=== PATIENT | female | born 1940 | race Caucasian/White ===

== ENCOUNTER 2020-02-07 09:31 | Outpatient (REF) | payer MEDICARE, BC, SELFPAY ==
[2020-02-07 19:03] LABS: TSH 0.53 uIU/mL (0.36-3.74)
== END 2020-02-07 09:51 ==
LOC: NCHCN 09:31
PROVIDERS: PCP Internal Medicine; Visit Provider Nurse Practitioner Family
DX: E03.9 Hypothyroidism, unspecified (principal)
CPT/HCPCS: 84443

== ENCOUNTER 2021-03-05 21:09 | Outpatient (REF) | payer MEDICARE, BC, SELFPAY ==
[2021-03-05 21:22] LABS: HCT 38.8 % (36.0-46.0); HGB 12.6 g/dL (11.2-15.7); MCH 31.3 pg (27.0-33.0); MCHC 32.5 % (32.0-36.0); MCV 96.5 fL (80-95); MPV 11.3 fL (8.0-11.0); Platelet Count 174 10^3/uL (130-400); RBC 4.02 10^6/uL (3.93-5.22); RDW-SD 42.7 fL; WBC 5.46 10^3/uL (4.4-10.8)
[2021-03-05 21:23] LABS: ESR 11 mm/hr (0-30)
[2021-03-05 21:25] LABS: Anion Gap 8.6 mmol/L (3-11); BUN 13 mg/dL (7-18); C-Reactive Protein 0.08 mg/dL (0.0-0.3); CO2 27.4 mmol/L (21.0-32.0); CREATININE 0.8 mg/dL (0.55-1.02); Calcium 9.4 mg/dL (8.5-10.1); Chloride 106 mmol/L (98-107); Glucose 88 mg/dL (74-106); Potassium 4.1 mmol/L (3.5-5.1); Sodium 142 mmol/L (136-145)
[2021-03-06 14:37] LABS: TSH 0.31 uIU/mL (0.36-3.74)
== END 2021-03-05 21:10 | disposition home or self-care (01) ==
LOC: NCHCN 21:09
PROVIDERS: PCP Internal Medicine; Visit Provider Internal Medicine
DX: E03.9 Hypothyroidism, unspecified (principal); M06.9 Rheumatoid arthritis, unspecified
CPT/HCPCS: 80048; 85027; 85652; 84443; 86140

== ENCOUNTER 2024-04-25 18:12 | Outpatient (REF) | payer MEDICARE, BC, SELFPAY ==
--- OUTSIDE RECORDS SUMMARY | 2024-04-25 18:15 | XMS_ITS ---
Author Organization Unknown Address [address] [place] [address] [phone] Phone Care Team Providers Care Agency Owner Name Role Phone HSERRY SELLERS Attending [facility] sheree MEEHAN Primary Unavailable Social History Type Status Start Date End Date Code Code Syst em Smoking History Never smoker (Never Smoked) 797901137 SNOMED CT Sex Female Hospital Discharge Instructions Should you have any questions prior to discharge, please contact a member of your healthcare team. If you have left the hospital and have any questions, please contact your primary care physician. Reason For Referral No Data Found Allergies and Adverse Reactions Allergy Substance Reaction Severity Start Date Concern Status Co de Code System SULFA (sulfonamide) Active 57337394 [facility] MED-CT Plan of Treatment Pre-Op Covid-19 Testing 06/04/2021 Encounters Encounter Diagnosis Start Date Code Code Sys tem Procedure and treatment not carried out because of patient's decision for other reasons 06/06/2021 SNO MED-CT Personal Care Team Section Performer Name Performer Role Active Date Inactive Da te
--- OUTSIDE RECORDS SUMMARY | 2024-04-25 18:15 | XMS_ITS | Continuity of Care Document ---
Author Organization [facility] Address [address] [place] [address] Care Team Providers Care Student Affairs Dean Name Role Phone Robert Ayala Primary Care Physician [facility] Date(s): 05/04/23 - 05/04/[address] [address] Discharge Disposition: Home or Self Care Attending Physician: Robert Hernández MD Admitting Physician: Robert Hernández MD Referring Physician: Robert Hernández MD Allergies, Adverse Reactions, Alerts Substance Reaction Severity Status sulfa drugs Unknown Active Augmentin XR pain joint Severe Active SARS-CoV-2 vaccines Renal failure Severe Active Medications levothyroxine 75 mcg (0.075 mg) oral tablet Start Date: 02/24/22 Status: Ordered Problem List Condition Confirmation Course Effective Dates Status Health St atus Informant Arthralgia of the ankle and/or foot Confirmed Active Cyst of left ovary Confirmed Active Posterior vaginal wall prolapse Confirmed Active Rheumatoid arthritis Confirmed Active Procedures Procedure Date Related Diagnosis Body Site Status Carpal tunnel syndrome of ri ght wrist 2020 Completed Carpal tunnel syndrome of left wrist 2014 Completed Procedure on back 2 07/16/11 Compl eted Ovarian cyst 2010 Completed Bladder 4 2005 Completed Tubal ligation 09/19/77 Completed Orthropedic Procedure 5 09/19/71 C ompleted 1with elbow 2Build up of bone in fifth vertebrae was removed 3removed cyst and ovary right 4tube tightner, 2008 mesh 5left thumb Results Laboratory List Name Date TSH w/ Rflx to Free T4 05/04/23 Basic Metabolic Panel 05/04/23 Most recent to oldest [Reference Range]: 1 BUN [7-18 mg/dL] 20 mg/dL *HI* (05/04/23 2:59 PM) Glucose Level [74-106 mg/dL] 81 mg/dL (05/04/23 2:59 PM) Potassium Level [3.5-5.1 mmol/L] 4.2 mmo l/L (05/04/23 2:59 PM) Sodium Level [136-145 mmol/L] 140 mmol/L (05/04/23 2:59 PM) Calcium Level [8.5-10.1 mg/dL] 9.2 mg/dL (05/04/23 2:59 PM) CO2 [21-32 mmol/L] 26 mmol/L (05/04/23 2:59 PM) TSH [0.358-3.740 mcIntlUnit/mL] 3.348 mc IntlUnit/mL (05/04/23 3:10 PM) eGFR Non-AA [>=60] 67 (05/04/23 2:59 PM) eGFR AA [>=60] 67 (05/04/23 2:59 PM) Chloride Level [98-107 mmol/L] 103 mmol/ L (05/04/23 2:59 PM) Creatinine Level [0.55-1.02 mg/dL] 0.87 mg/dL (05/04/23 2:59 PM) Social History Social History Type Response Tobacco Never tobacco user T obacco Use:. Sex Female Patient Care team information Care Team Personnel Name: Karol Robert MORENO MD Position: No Access Member Role: Informed Provider Address: Address: [address] [address]- [place] Name: [facility] Position: Physician Member Role: Primary Care Physician Address: Address: [address] [place] [phone]
--- OUTSIDE RECORDS SUMMARY | 2024-04-25 18:15 | XMS_ITS ---
Author Organization Unknown Address [address] [place] [phone] Phone Care Team Providers Care Motor Scooter Mechanic Name Role Phone SHERRY SELLERS Attending Chente Bruner Primary Unavailable Results C-ARM FLUORO NO CHARGE - Com pleted: 06/06/2021 16:38 LOINC: C-ARM FLUOROSCOPY: Fluoroscopy was provided for Dr. Prakash for guidance with performing a lumbar spine injection. Please see procedure note for details. Fluoro time = 12.3 seconds Ka,r = 4.25 mGy Dictated by: CEO JOHANNA RICHARDS M.D. RADIOLOGIST Transcribed by: SUJIT 06/06/21/16:42 [id number] Electronically Reviewed and Signed By: JOHANNA RICHARDS M.D. RADIOLOGIST 06/07/21 07:09 Copy for: SHERRY SELLERS via link DISCHARGED Social History Type Status Start Date End Date Code Code Syst em Smoking History Never smoker (Never Smoked) 554122561 SNOMED CT Sex Female Hospital Discharge Instructions Should you have any questions prior to discharge, please contact a member of your healthcare team. If you have left the hospital and have any questions, please contact your primary care physician. Reason For Referral No Data Found Procedures Procedure Name Date Status Code Code Syste m Injection Anesthetic Agent/S teroid Transforaminal Epidural Lumbar/Sacral Single Level 06/06/2021 completed 37656 CPT Allergies and Adverse Reactions Allergy Substance Reaction Severity Start Date Concern Status Co de Code System SULFA (sulfonamide) Active 14812674 [facility] MED-CT Plan of Treatment Pre-Op Covid-19 Testing 06/04/2021 Encounters Encounter Diagnosis Start Date Code Code Sys tem Other spondylosis with myelopathy, lumbar region 09/17 /2021 SNOMED-CT Personal Care Team Section Performer Name Performer Role Active Date Inactive Da te
--- OUTSIDE RECORDS SUMMARY | 2024-04-25 18:15 | XMS_ITS | Continuity of Care Document ---
Author Organization [facility] Address [address] [place] [address] Care Team Providers Care Cereal Chemist Name Role Phone Robert Ayala Primary Care Physician [facility] [id number] Date(s): 04/05/24 - 04/05/[address] [address] Discharge Disposition: Home or Self Care Attending Physician: Linnette Ang NP Admitting Physician: Lninette Ang SECOND SHIFT SUPERVISOR Referring Physician: Linnette Ang SECOND SHIFT SUPERVISOR Allergies, Adverse Reactions, Alerts Substance Reaction Severity [...] right 4tube tightner, 2008 mesh 5left thumb Social History Social History Type Response Tobacco Never tobacco user T obacco Use:. Sex Female Patient Care team information Care Team Personnel Name: Robert Hernández MD Position: No Access Member Role: Informed Provider Address: Address: [facility] [address] [facility], [place] [address] Name: Robert Ayala MD Position: Physician Member Role: Primary Care Physician Address: Address: [address] [place], [place] [address]
--- OUTSIDE RECORDS SUMMARY | 2024-04-25 18:16 | XMS_ITS | Encounter Summary ---
[place] [address] Care Team Providers Care Resin Shaver Name Role Phone Robert Roberson MD Primary Care Provider + [phone] Reason for Visit * Reason Comments Annual Exam Encounter Details Date Type Department Care Team (Late st Contact Info) Description 03/25/2023 8:30 AM EDT Office Visit Dermatology at [place] [address] [facility] [place] [address] Wisam Fortune MD [address] [facility] [place] [address] Actinic keratoses; History of SCC (squamous cell carcinoma) of skin; History of basal cell carcinoma Social History Tobacco Use Types Packs/Day Years Used Date Smoking Tobacco: Never Smokeless Tobacco: Never Sex and Gender Information Value Date Recorded Sex Assigned at Not on file Gender Identity Not on file Sexual Orientation Not on file documented as of this encounter Progress Notes * Wisam Fortune MD - 03/25/2023 8:30 AM EDT Problem: 1. One-year skin checkup 2. History of SCCA left upper chest 2005 3. History of rosacea initially diagnosed 2010 currently quiescent 4. 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 She is here for her yearly skin checkup. She has been doing well.She enjoys her time in [place] where she spends part of the summer and then denis in the [facility]. Physical examination reveals a pleasant 82-year-old woman who has has actinic's across the foreheadand also dorsal hands total of 5 sites are noted. Fortunately careful examination of the head and the neck the chest the back the hands arms forearms thighs and calves is benign. Assessment plan: Actinic keratosis facial and dorsal hands 1. LN 2 x 2 applied to each of 5 sites 2. Continue sun avoidance precautions 3. Return clinic in a year for a repeat check. History of multiple nonmelanoma cutaneous malignancies 1. No evidence of recurrence of prior treatment sites 2. Return to clinic in 1 year. CC: Robert Roberson MD documented in this encounter Plan of Treatment Upcoming Encounters Date Type Department Care Team (Late st Contact Info) Description 04/17/2025 10:00 AM EDT Office Visit Dermatology at [place] [address] [place] [address] Wisam Fortune MD [address] [facility], [facility] [place] [address] documented as of this encounter Visit Diagnoses Diagnosis Actinic keratoses Actinic keratosis History of SCC (squamous cell carcinoma) of skin Personal history of other malignant neoplasm of skin History of basal cell carcinoma Personal history of other malignant neoplasm of skin documented in this encounter Care Teams Resin Shaver Relationship Specialty Start Date End Date Robert Roberson MD [address] [place] [id number] PCP - General General Internal Medicine 08/14/16 documented as of this encounter
--- OUTSIDE RECORDS SUMMARY | 2024-04-25 18:16 | XMS_ITS | Encounter Summary ---
[place] [address] Care Team Providers Care Medart Operator Name Role Phone Robert Roberson MD Primary Care Provider [phone] Encounter Details Date Type Department Care Team (Latest Contact Info) Description 04/11/2024 Travel Social History Tobacco Use Types Packs/Day Years Used Date Smoking Tobacco: Never Smokeless Tobacco: Never Sex and Gender Information Value Date Recorded Sex Assigned at Not on file Gender Identity Not on file Sexual Orientation Not on file documented as of this encounter Plan of Treatment Upcoming Encounters Date Type Department Care Team (Late st Contact Info) Description 04/17/2025 10:00 AM EDT Office Visit Dermatology at [place] [address] [place] [id number] Wisam Fortune MD [address] [facility] [place] [address] documented as of this encounter Visit Diagnoses Not on filedocumented in this encounter Care Teams Medart Operator Relationship Specialty Start Date End Date Robert Roberson MD [address] [place] [id number] PCP - General General Internal Medicine 08/14/16 documented as of this encounter
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
--- OUTSIDE RECORDS SUMMARY | 2024-04-25 18:16 | XMS_ITS | Encounter Summary ---
Author Organization [facility] Address [address] [place] [address] Care Team Providers Care Pile Header Name Role Phone Unavailable Primary Care Provider Unavailabl e Encounter Details Date Type Department Care Team (Latest Contact Info) Description 08/18/2007 15:39 EST Hospital Encounter [facility] - [facility] [address] [place] [address] Larry Nuñez MD [address] [place] [address] [address] [place] [address] Discharge Disposition: Auto Discharge Social History Tobacco Use Types Packs/Day Years Used Date Smoking Tobacco: Never Assessed Sex and Gender Information Value Date Recorded Sex Assigned at Not on file Gender Identity Not on file Sexual Orientation Not on file documented as of this encounter Discharge Disposition Disposition Code Departure Means Destination Auto Discharge documented in this encounter Plan of Treatment Not on file documented as of this encounter Visit Diagnoses Not on filedocumented in this encounter
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
--- OUTSIDE RECORDS SUMMARY | 2024-04-25 18:16 | XMS_ITS | Encounter Summary ---
Author Organization [facility] Address [address] [place] [address] Care Team Providers Care Internetworking Technician Name Role Phone Unavailable Primary Care Provider Unavailabl e Encounter Details Date Type Department Care Team (Late st Contact Info) Description 10/03/1999 Results Only [facility] - Maple conversion [address] [place] [address] Unknown, Provider, Social History Tobacco Use Types Packs/Day Years Used Date Smoking Tobacco: Never Assessed Sex and Gender Information Value Date Recorded Sex Assigned at Not on file Gender Identity Not on file Sexual Orientation Not on file documented as of this encounter Plan of Treatment Not on file documented as of this encounter Procedures Procedure Name Priority Date/Time Associated Diagnosis Comments TSH Routine 10/03/1999 19:25 EST T4 FREE Routine 10/03/1999 19:25 EST documented in this encounter Results * (ABNORMAL) TSH (10/03/1999 19:25 EST) TSH 8.64(H) 0.35 - 5.50 uIU/ml [facility] 10/03/1999 19:2 5 EST 10/06/1999 19:25 EST Provider Unknown CHEMISTRY & BLOOD GA S ORDERABLES [facility] [address] [place] [address] * T4 FREE (10/03/1999 19:25 EST) Free T4 1.2 0.8 - 1.8 ng/dl [facility] 10/03/1999 19:2 5 EST 10/06/1999 19:25 EST Provider Unknown CHEMISTRY & BLOOD GA S ORDERABLES Performing Organization Address City/State/[facility] Co de Phone Number [facility] [address] [place] [address] documented in this encounter Visit Diagnoses Not on filedocumented in this encounter
--- OUTSIDE RECORDS SUMMARY | 2024-04-25 18:16 | XMS_ITS | Encounter Summary ---
[place] [address] Care Team Providers Care Relief Charge Nurse Name Role Phone Robert Roberson MD Primary Care Provider + [phone] Reason for Visit * Reason Comments Annual Exam Encounter Details Date Type Department Care Team (Late st Contact Info) Description 04/11/2024 11:30 AM EDT Office Visit Dermatology at [place] [address] [facility] [place] [address] Wisam Fortune MD [address] [facility], [place] [address] History of SCC (squamous cell carcinoma) of skin; History of basal cell carcinoma; Seborrheic keratoses Social History Tobacco Use Types Packs/Day Years Used Date Smoking Tobacco: Never Smokeless Tobacco: Never Sex and Gender Information Value Date Recorded Sex Assigned at Not on file Gender Identity Not on file Sexual Orientation Not on file documented as of this encounter Progress Notes * Wisam Fortune MD - 04/11/2024 11:30 AM EDT Problem: 1. One-year skin checkup 2. History of SCCA left upper chest 2005 3. History of rosacea initially diagnosed 2010 currently quiescent 4. 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 She has been doing well. She enjoys her time in [place] where she spends part of the summer and then denis in the [facility]. Fortunately she experienced dog bites when she was in [place] this last year on her left leg which caused extensive wound and was very slow to heal. She was also bitten once on her buttocks. She shows me a photograph of the wound 45 minutes after it was inflicted. Physical examination reveals a pleasant 83-year-old woman who has a benign examination today of thehead and the neck the chest the back the hands arms forearms thighs and calves is benign. She does have an irritated seborrheic keratoses 1 on her right lateral cheek and 1 on the anterior upper flexural Neck. She has a number of seborrheic keratoses on the inferior breasts and on her upper abdomen. Assessment plan: Seborrheic keratoses face neck and chest 1. Patient reassured about benign seborrheic keratoses 2. Could consider LN2 for right lateral cheek and flexural neck sites 3. No evidence of any cutaneous malignancies seen. 4. Return to clinic in a year for repeat check. History of multiple nonmelanoma cutaneous malignancies 1. No evidence of recurrence of prior treatment sites 2. Return to clinic in 1 year. CC: Robert Roberson MD documented in this encounter Plan of Treatment Upcoming Encounters Date Type Department Care Team (Late st Contact Info) Description 04/17/2025 10:00 AM EDT Office Visit Dermatology at [place] [address] [place] [address] Wisam Fortune MD [address] [facility], [place] [address] documented as of this encounter Visit Diagnoses Diagnosis History of SCC (squamous cell carcinoma) of skin Personal history of other malignant neoplasm of skin History of basal cell carcinoma Personal history of other malignant neoplasm of skin Seborrheic keratoses documented in this encounter Care Teams Relief Charge Nurse Relationship Specialty Start Date End Date Robert Roberson MD [address] [place] [address] PCP - General General Internal Medicine 08/14/16 documented as of this encounter
--- OUTSIDE RECORDS SUMMARY | 2024-04-25 18:16 | XMS_ITS | Encounter Summary ---
Author Organization [facility] Address [address] [place] [address] Care Team Providers Care Trade Specialist Name Role Phone Zoran Roberson MD Primary Care Provider Encounter Details Date Type Department Care Team (Late st Contact Info) Description 12/08/2006 Results Only [facility] - Maple conversion [address] [place] [address] Larry Brush MD [address] [facility] [address] [place] [address] Social History Tobacco Use Types Packs/Day Years Used Date Smoking Tobacco: Never Assessed Sex and Gender Information Value Date Recorded Sex Assigned at Not on file Gender Identity Not on file Sexual Orientation Not on file documented as of this encounter Plan of Treatment Not on file documented as of this encounter Procedures Procedure Name Priority Date/Time Associated Diagnosis Comments SURGICAL PATHOLOGY Routine 12/08/2006 0:00 EDT documented in this encounter Results * SURGICAL PATHOLOGY (12/08/2006 0:00 EDT) Pathology Report: SURGICAL PATHOLOGY REPORT Reports generated via electronic interface contain original data; however they are lacking the format of the original report. Caution should be taken when reading/interpreti ng unformatted reports. Name: ? TAYA SERRANO ? Accession #: ? [id number] ? : ? 1940 (Age: 66) ??F ? Collect Date: ? 12/08/2006 ? Location: ? [facility] ? Receive Date: ? 12/08/2006 ? Provider: LARRY BRUSH MD Copy to: ZORAN ROBERSON MD ? Final Pathologic Diagnosis: ? Skin of nose, left tip, shave biopsy: - Granulomatous perifolliculitis. ??See comment. Comment: ? The histologic features are consistent with rosacea. ??There is no evidence of basal cell carcinoma. ??(Dr. Jeff)/[facility] Microscopic Description: ? Sections consist of a shave biopsy of a low papule. ??There is mild orthohyperkeratosi s and focal parakeratosis. ??Centrally, there is a distorted follicular infundibulum. ??The surrounding dermis has a dense mixed inflammatory infiltrate that includes clusters of macrophages and rare multinucleate giant cells. ??The histiocytes are accompanied by lymphocytes and plasma cells as well as a small number of neutrophils. ??There is mild vascular ectasia and abundant solar elastosis. ??(Dr. Jeff)/[facility] Document reviewed and electronically signed by: Codi Jeff MD Report ??Date: 12/10/2006 15:29 By the signature above, the attending physician certifies that he/she has personally conducted a gross and/or microscopic examination of the described specimens and rendered or confirmed the above diagnosis. Specimen(s) Received: ? L tip of nose Clinical History: ? BCC vs. rosacea; clinical diagnosis code: 709.9 Gross Description: ? Received in formalin labelled Cardoza and nasal tip is a choi irregular 0.4 x 0.3 cm skin shave with a central choi-yellow 0.2 x 0.2 x 0.1 cm slightly raised papule. The specimen is inked, bisected and is entirely submitted in one cassette. (Jeronimo Pittman ??MM)/[facility] End of Report [facility] 12/08/2006 12/08/2006 1:0 1 EDT Larry Brush MD PATHOLOGY ORDER ISAAC [facility] [address] [place] [address] documented in this encounter Visit Diagnoses Not on filedocumented in this encounter Care Teams Trade Specialist Relationship Specialty Start Date End Date Zoran Roberson MD [address] [place] [address] PCP - General 02/27/10 documented as of this encounter
--- OUTSIDE RECORDS SUMMARY | 2024-04-25 18:16 | XMS_ITS | Encounter Summary ---
Author Organization [facility] Address [address] [place] [address] Care Team Providers Care Qc Tech Name Role Phone Zoran Roberson MD Primary Care Provider Encounter Details Date Type Department Care Team ([facility] st Contact Info) Description 05/13/[address] [facility] - Maple conversion [address] [place] [address] Justina Salmon, MANUFACTURER'S REPRESENTATIVE [address] [place], [place] [address] Social History Tobacco Use Types Packs/Day Years Used Date Smoking Tobacco: Never Assessed Sex and Gender Information Value Date Recorded Sex Assigned at Not on file Gender Identity Not on file Sexual Orientation Not on file documented as of this encounter Plan of Treatment Not on file documented as of this encounter Procedures Procedure Name Priority Date/Time Associated Diagnosis Comments SURGICAL PATHOLOGY Routine 05/13/2006 0:00 EDT documented in this encounter Results * SURGICAL PATHOLOGY (05/13/2006 0:00 EDT) Pathology Report: SURGICAL PATHOLOGY REPORT Reports generated via electronic interface contain original data; however they are lacking the format of the original report. Caution should be taken when reading/interpreti ng unformatted reports. Name: ? TAYA SERRANO ? Accession #: ? [id number] ? : ? 1940 (Age: 65) ??F ? Collect Date: ? 05/13/2006 ? Location: ? [facility] ? Receive Date: ? 05/13/2006 ? Provider: JUSTINA SALMON DIGITAL PROGRAM MANAGER Copy to: ZORAN ROBERSON MD ? Final Pathologic Diagnosis: ? Skin of shoulder, right superior, shave biopsy: - Solar lentigo. Microscopic Description: ? The stratum corneum consists of a normal thin layer of basketweave orthokeratin. ??The epidermis is hyperplastic with elongate, thin, anastomosing rete ridges. ??Some of the rete are club shaped. ??The keratinocytes have abundant melanin pigment. ??The melanocytes are generally normal in number and distribution. ??There is prominent solar elastosis in the dermis. ??(Dr. Rubin)/[facility] Document reviewed and electronically signed by: Alysha Rubin MD Report ??Date: 05/18/2006 08:07 By the signature above, the attending physician certifies that he/she has personally conducted a gross and/or microscopic examination of the described specimens and rendered or confirmed the above diagnosis. Specimen(s) Received: ? R superior shoulder Clinical History: ? Nevus, atypical/lentigo; clinical diagnosis code: ??238.2 Gross Description: ? Received in formalin labelled Sheperd and R shoulder is a 0.6 x 0.5 x 0.1 cm shave biopsy of choi-brown skin with a centrally located, irregularly-border ed, brown macule. ??The specimen is bisected and entirely submitted in one cassette. ??(Renzo Mancia)/[facility] End of Report [facility] 05/13/2006 05/13/2006 14: 32 EDT Justina Salmon MANUFACTURER'S REPRESENTATIVE PATHOLOGY ORDERABLES [facility] [address] [place] [address] documented in this encounter Visit Diagnoses Not on filedocumented in this encounter Care Teams Qc Tech Relationship Specialty Start Date End Date Zoran Roberson MD [address] [place] [address] PCP - General 02/27/10 documented as of this encounter
--- OUTSIDE RECORDS SUMMARY | 2024-04-25 18:16 | XMS_ITS | Encounter Summary ---
Author Organization [facility] Address [address] [place] [address] Care Team Providers Care Accounting System Expert Name Role Phone Unavailable Primary Care Provider Unavailabl e Encounter Details Date Type Department Care Team (Latest Contact Info) Description 05/12/2001 11:13 EDT - 05/12/2001 11:59 EDT Hospital Encounter [facility] [address] [place] [address] Christianne Green MD [address] [facility] [address] [place] [id number] Discharge Disposition: Auto Discharge Social History Tobacco [...] Procedure Name Priority Date/Time Associated Diagnosis Comments WRIST 2 VIEWS BILATERAL Routine 05/12/2001 15:11 EDT FOOT 3 OR MORE VIEWS BILATERAL Routine 05/12/2001 15:11 EDT documented in this encounter Results * FOOT 3 OR MORE VIEWS BILATERAL (05/12/2001 15:11 EDT) Anatomical Region Laterality Modality Other 05/12/2001 15:1 1 EDT Impressions 08/09/2009 0:28 EST IMPRESSION: Degenerative change in the interphalangeal joints, most pronounced in the DIP joints, though this is atypical, this may reflect rheumatoid arthritis. WRISTS: Two views of each wrist were obtained. There is some irregularity and sclerosis at the first carpometacarpal joints bilaterally. No significant erosive change is identified in the wrist. 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 /sb Narrative 08/09/2009 0:28 EST rheumatoid arthritis r/o erosions gftp FOOT, 3 OR MORE VIEWS, BILATERAL WRIST, 2 VIEWS, BILATERAL: 05/12/01, 1125 CLINICAL HISTORY: Rheumatoid arthritis. Rule out erosions. FEET: Three views of each foot were obtained. There is some narrowing and irregularity involving the interphalangeal joints of the toes, most pronounced at the DIP joint of the 3rd toe. The metatarsophalangeal joints and the tarsometatarsal joints are maintained. No significant erosive disease is appreciated. Incidentally noted is a 4mm spur projected off the inferior calcaneus on the left. Also noted is spurring at the Achilles tendon insertion site bilaterally. Procedure Note Viktor Mccoy MD - 08/09/2009 rheumatoid arthritis r/o erosions gftp FOOT, 3 OR MORE VIEWS, BILATERAL WRIST, 2 VIEWS, BILATERAL: 05/12/01, 1125 CLINICAL HISTORY: Rheumatoid arthritis. Rule out erosions. FEET: Three views of each foot were obtained. There is some narrowing and irregularity involving the interphalangeal joints of the toes, most pronounced at the DIP joint of the 3rd toe. The metatarsophalangeal joints and the tarsometatarsal joints are maintained. No significant erosive disease is appreciated. Incidentally noted is a 4mm spur projected off the inferior calcaneus on the left. Also noted is spurring at the Achilles tendon insertion site bilaterally. IMPRESSION IMPRESSION: Degenerative change in the interphalangeal joints, most pronounced in the DIP joints, though this is atypical, this may reflect rheumatoid arthritis. WRISTS: Two views of each wrist were obtained. There is some irregularity and sclerosis at the first carpometacarpal joints bilaterally. No significant erosive change is identified in the wrist. 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 /shine Christianne [facility] NG ORDERABLES * WRIST 2 VIEWS BILATERAL (05/12/2001 15:11 EDT) Anatomical Region Laterality Modality Other 05/12/2001 15:1 1 EDT Narrative 08/09/2009 0:28 EST rheumatoid arthritis r/o erosions gftp Procedure Note Viktor Mccoy MD - 08/09/2009 rheumatoid arthritis r/o erosions gftp Christianne [facility] NG ORDERABLES documented in this encounter Visit Diagnoses Not on filedocumented in this encounter
--- OUTSIDE RECORDS SUMMARY | 2024-04-25 18:16 | XMS_ITS | Encounter Summary ---
Author Organization [facility] Address [address] [place] [address] Care Team Providers Care Hub Associate Name Role Phone Unavailable Primary Care Provider Unavailabl e Encounter Details Date Type Department Care Team (Late st Contact Info) Description 01/23/2000 21:18 EDT Hospital Encounter [facility] - Other [address] [place] [address] Mohsen Lynn MD [address] [place], [place] [address] Unknown, Provider, Social History Tobacco Use Types Packs/Day Years Used Date Smoking Tobacco: Never Assessed Sex and Gender Information Value Date Recorded Sex Assigned at Not on file Gender Identity Not on file Sexual Orientation Not on file documented as of this encounter Plan of Treatment Not on file documented as of this encounter Procedures Procedure Name Priority Date/Time Associated Diagnosis Comments MISCELLANEOUS TEST, DURAN Routine 01/23/2000 20:39 EDT documented in this encounter Results * MISCELLANEOUS TEST (01/23/2000 20:39 EDT) Test Name TSH SENSITIVE [facility] Result 5.2 mIU/L [facility] Ref Range 0.30 to 5.0 mIU/ml 5.1 to 7.0 mIU/ml (borderline hypothyroid) [facility] Ref Lab [facility] reference lab code [facility] 01/23/2000 20:3 9 EDT 01/23/2000 20:39 EDT Mohsen Nieto MD CHEMISTRY & BLOOD GA S ORDERABLES Performing Organization Address City/State/[facility] Co de Phone Number [address] [address] documented in this encounter Visit Diagnoses Not on filedocumented in this encounter
--- OUTSIDE RECORDS SUMMARY | 2024-04-25 18:16 | XMS_ITS | Encounter Summary ---
Author Organization [facility] Address [address] [place] [address] Care Team Providers Care Cake Press Operator Name Role Phone Zoran Roberson MD Primary Care Provider [phone] Encounter Details Date Type Department Care Team (Late st Contact Info) Description 08/02/2015 Results Only [facility] [phone] Larry Brush MD [address] [facility] [address] [place] [address] Social History Tobacco Use Types [...] Date/Time Associated Diagnosis Comments SURGICAL PATHOLOGY Routine 08/02/2015 15 :43 EST documented in this encounter Results * SURGICAL PATHOLOGY (08/02/2015 15:43 EST) Pathology Report: SURGICAL PATHOLOGY REPORT Reports generated via electronic interface contain original data; however they are lacking the format of the original report. Caution should be taken when reading/interpret ing unformatted reports. Name: ? TAYA SERRANO ? Accession #: ? [id number] ? : ? 1940 (Age: 75) ??F ? Collect Date: ? 08/02/2015 ? Location: ? [facility] ? Receive Date: ? 08/02/2015 ? Provider: LARRY BRUSH MD Copy to: ZORAN ROBERSON MD ? Final Pathologic Diagnosis: SKIN OF PRETIBIAL REGION, RIGHT DISTAL, SHAVE BIOPSY: - Seborrheic keratosis, pigmented. Microscopic Description: The stratum corneum is thickened by compact and basketweave orthokeratosis with formation of horn pseudocysts. ??The epidermis is acanthotic with formation of broad and anastomosing trabeculae. ??The trabeculae are composed of basaloid keratinocytes with round uniform nuclei. ??The keratinocytes have a variable amount of melanin pigment. ??(Dr. Jeff)/[facility] Document reviewed and electronically signed by: SIVA JEFF MD Report ??Date: 08/06/2015 15:13 By the signature above, the attending physician certifies that he/she has personally conducted a gross and/or microscopic examination of the described specimens and rendered or confirmed the above diagnosis. Specimen(s) Received: Right distal pretibial region shave biopsy Clinical History: 1.8 pigmented patch; DDx: Atypical nevus vs melanoma vs lentigo; clinical diagnosis code: ??D48.5 Gross Description: ? Received in formalin labelled with proper patient identification (initials S, B) and right distal pretibial region is a shave biopsy of choi-brown mottled skin (1.8 x 1.0 x 0.1 cm). The deep margin is inked blue. Trisected and submitted in 1. Dr. Hartman 08/03/2015 11:14 AM End of Report [facility] 08/02/2015 15:4 3 EST 08/02/2015 15:43 EST Larry Brush MD PATHOLOGY ORDER ISAAC [facility] [address] [place] [address] documented in this encounter Visit Diagnoses Not on filedocumented in this encounter Care Teams Cake Press Operator Relationship Specialty Start Date End Date Zoran Roberson MD [address] [place] [address] PCP - General 02/27/10 documented as of this encounter
--- OUTSIDE RECORDS SUMMARY | 2024-04-25 18:16 | XMS_ITS | Encounter Summary ---
Author Organization [facility] [place] [address] Care Team Providers Care Boiler Tube Blower Name Role Phone Robert Roberson MD Primary Care Provider + [phone] Reason for Visit * Reason Comments Follow-up Skin Check Encounter Details Date Type Department Care Team (Late st Contact Info) Description 04/07/2019 9:45 AM EDT Office Visit Dermatology at [address] [place] [address] Wisam Fortune MD [address] [facility], [facility] DERMATOLOGY [place], [place] [address] Seborrheic keratosis; Actinic keratosis; History of SCC (squamous cell carcinoma) of skin; Seborrheic keratosis, inflamed Social History Tobacco Use Types Packs/Day Years Used Date Smoking Tobacco: Never Smokeless Tobacco: Never Sex and Gender Information Value Date Recorded Sex Assigned at Not on file Gender Identity Not on file Sexual Orientation Not on file documented as of this encounter Progress Notes * Wisam Fortune MD - 04/07/2019 9:45 AM EDT Problem: 1. One-year skin checkup 2. History of SCCA left upper chest 2005 3. History of rosacea initially diagnosed 2010 currently quiescent Taya follows up and has had a good year. She is enjoying her time in [place] living as she does on [facility] in [place] and she is considering the wintertime home in [place] however after last winter. She does get a lot of sun during summer and lays outside. Physical examination reveals a pleasant 78-year-old woman who has what appears to be an early BCC on the right mid nasal bridge. She has seborrheic keratoses on the right and left temples. Fortunately examination of the head and the neck the chest and the back hands on forms thighs and calves otherwise benign. She does have actinic keratosis on the upper central forehead and one in the frontal mid parietal scalp hair part line. Assessment and plan: Actinic keratoses for upper forehead and anterior parietal scalp hairline 1. LN 2 x 2 applied each of these 2 sites. Probable BCCA nasal mid nasal right treatment right mid nasal bridge 1. After obtaining informed consent site was anesthetized and shave C&D x2 performed 2. Triple antibiotic and Band-Aid placed 3. Wound care supplies given 4. After curettage site measured 7 mm in diameter. Seborrheic keratoses temples 1. Could consider LN2 x2 treatment to the sites today 2. If not resolved with that could consider C&D removal. Patient will make an appointment if necessary CC: Robert Roberson MD documented in this encounter Plan of Treatment Upcoming Encounters Date Type Department Care Team (Late st Contact Info) Description 04/17/2025 10:00 AM EDT Office Visit Dermatology at [place] [address] [place] [address] Wisam Fortune MD [address] [facility], [place] [address] documented as of this encounter Visit Diagnoses Diagnosis Seborrheic keratosis Other seborrheic keratosis Actinic keratosis History of SCC (squamous cell carcinoma) of skin Personal history of other malignant neoplasm of skin Seborrheic keratosis, inflamed Inflamed seborrheic keratosis documented in this encounter Care Teams Boiler Tube Blower Relationship Specialty Start Date End Date Robert Roberson MD [address] [place] [address] PCP - General General Internal Medicine 08/14/16 documented as of this encounter
--- OUTSIDE RECORDS SUMMARY | 2024-04-25 18:16 | XMS_ITS | Encounter Summary ---
Author Organization [facility] Address [address] [place] [address] Care Team Providers Care Hadoop Admin Name Role Phone Zoran Roberson MD Primary Care Provider Encounter Details Date Type Department Care Team (Late st Contact Info) Description 09/29/2011 Results Only [facility] Laboratory Services - [facility] ([facility]) [address], [place] [id number] Larry Brush MD [address] [place] [address] [address] [place] [phone] Social History Tobacco Use Types Packs/Day Years Used Date Smoking Tobacco: Never Assessed Sex and Gender Information Value Date Recorded Sex Assigned at Not on file Gender Identity Not on file Sexual Orientation Not on file documented as of this encounter Plan of Treatment Not on file documented as of this encounter Procedures Procedure Name Priority Date/Time Associated Diagnosis Comments SURGICAL PATHOLOGY Routine 09/29/2011 0:00 EST documented in this encounter Results * SURGICAL PATHOLOGY (09/29/2011 0:00 EST) Pathology Report: SURGICAL PATHOLOGY REPORT Reports generated via electronic interface contain original data; however they are lacking the format of the original report. Caution should be taken when reading/interpreting unformatted reports. Name: ? TAYA SERRANO ? Accession #: ? [id number] ? : ? 1940 (Age: 71) ??F ? Collect Date: ? 09/29/2011 ? Location: ? [facility] ? Receive Date: ? 09/29/2011 ? Provider: LARRY BRUSH MD Copy to: ZORAN ROBERSON MD ? Final Pathologic Diagnosis: ? Skin of nasal tip, left, shave biopsy: - Features consistent with ruptured follicle. ?? Microscopic Description: ? Sections consist of a punch biopsy of skin. ??Within the dermis is a somewhat folliculocentric nodular aggregate of mixed inflammation which includes neutrophils, lymphomononuclear cells, and granulomata. ??Scattered foreign body-type giant cells are identified along with fragments of liberated orthokeratin and extravasated erythrocytes. ??(Dr. Thakkar)/[facility] ?? Document reviewed and electronically signed by: ROSSY THAKKAR MD Report ??Date: 09/30/2011 16:19 By the signature above, the attending physician certifies that he/she has personally conducted a gross and/or microscopic examination of the described specimens and rendered or confirmed the above diagnosis. Specimen(s) Received: ? L nasal tip Clinical History: ? Perifolliculitis; R/O BCC; clinical diagnosis code: 238.2 Gross Description: ? Received in formalin labelled Sukhdeep Serrano nasal tip is a 0.3 x 0.3 cm, irregular shave biopsy of white skin. ??There is a central, 0.2 x 0.1 x 0.1 cm, ovoid, choi-red, smooth papule. ??The specimen is submitted intact in a single cassette. ??(Tyler Diaz/[facility] End of Report [facility] 09/29/2011 09/29/2011 14: 39 EST Larry Brush MD PATHOLOGY ORDER ISAAC [facility] [address] [place] [address] documented in this encounter Visit Diagnoses Not on filedocumented in this encounter Care Teams Hadoop Admin Relationship Specialty Start Date End Date Zoran Roberson MD [address] [place] [address] PCP - General 02/27/10 documented as of this encounter
--- OUTSIDE RECORDS SUMMARY | 2024-04-25 18:16 | XMS_ITS | Encounter Summary ---
Author Organization [facility] Address [address] [place] [address] Care Team Providers Care Farm Equipment Engineer Name Role Phone Unavailable Primary Care Provider Unavailabl e Encounter Details Date Type Department Care Team (Latest Contact Info) Description 04/14/2000 8:03 EDT - 04/14/2000 11:59 EDT Hospital Encounter [address] [address] Christianne Green MD [address] [facility] [address] [place] [address] Discharge Disposition: Auto Discharge Social History Tobacco [...] Procedure Name Priority Date/Time Associated Diagnosis Comments MA MAMMO DIAG BILAT Routine 04/14/2000 8:46 EDT documented in this encounter Results * MA MAMMO DIAG BILAT (04/14/2000 8:46 EDT) Anatomical Region Laterality Modality Other 04/14/2000 8:46 EDT Impressions 07/30/2009 16:48 EST IMPRESSION: BILATERAL BREASTS - Category 1 Negative, no evidence of malignancy. Normal interval follow-up is recommended in 12 months. OVERALL ASSESSMENT - NEGATIVE END OF IMPRESSION Narrative 07/30/2009 16:48 EST DX GABRIELA. PRESISTANT ITCHING, SWELLING - BURNING BILATERAL, ??HX B9 BX LT BR. ??PREVIOUS MAMMO FROM [facility] PT WILL REQUEST No comparison films were available at the time of this reading. Bilateral Breast Findings: There are scattered fibroglandular densities. No masses, significant calcifications or other abnormalities are seen. Procedure Note Camila Amezcua MD / Robert Olivo MD - 07/30/2009 DX GABRIELA. PRESISTANT ITCHING, SWELLING - BURNING BILATERAL, HX B9 BX LT BR. PREVIOUS MAMMO FROM [facility] PT WILL REQUEST No comparison films were available at the time of this reading. Bilateral Breast Findings: There are scattered fibroglandular densities. No masses, significant calcifications or other abnormalities are seen. IMPRESSION IMPRESSION: BILATERAL BREASTS - Category 1 Negative, no evidence of malignancy. Normal interval follow-up is recommended in 12 months. OVERALL ASSESSMENT - NEGATIVE END OF IMPRESSION Christianne Green MD IMG MAMMOGRAPHY MELITON CHINO documented in this encounter Visit Diagnoses Not on filedocumented in this encounter
--- OUTSIDE RECORDS SUMMARY | 2024-04-25 18:16 | XMS_ITS | Encounter Summary ---
[place] [address] Care Team Providers Care Lead Level Designer Name Role Phone Robert Roberson MD Primary Care Provider + [phone] Reason for Visit * Reason Comments Follow-up Skin Check Encounter Details Date Type Department Care Team (Late st Contact Info) Description 03/29/2018 9:45 AM EDT Office Visit Dermatology at [place] [address] [facility] [place] [address] Wisam Fortune MD [address] [facility] [place] [address] Seborrheic keratosis; Actinic keratosis; History of SCC [...] Progress Notes * Wisam Fortune MD - 03/29/2018 9:45 AM EDT Problem: 1. One-year skin checkup 2. History of SCCA left upper chest 2005 3. History of rosacea initially diagnosed 2010 currently quiescent Taay follows up and has been doing well.. She is enjoying the summer but is very careful to avoid the sun from 11-4 does use sunscreen. She enjoys the [id number]-czutn. She has not noted any particular lesions of concern Physical examination was a pleasant 77-year-old woman who has seborrheic keratoses present on the right and left quaker. She has 2 actinic's on the left and right quaker as well. Otherwise careful examination of the head and the neck the chest the back the hands the arms informs thighs and the calves is benign. Assessment and plan: Seborrheic keratoses left and right quaker 1. Could consider LN 2 x 2 therapy 2. Patient reassured about benign nature of these Actinic keratoses facial four between left and right quaker together 1. LN 2 x 2 applied each of 4 sites 2. Return to clinic in a year for repeat check. Cc: Robert Roberson MD documented in this encounter Plan of Treatment Upcoming Encounters Date Type Department Care Team (Late st Contact Info) Description 04/17/2025 10:00 AM EDT Office Visit Dermatology at [place] [address] [place] [address] Wisam Fortune MD [address] [place] [address] documented as of this encounter Visit Diagnoses Diagnosis Seborrheic keratosis Other seborrheic keratosis Actinic keratosis History of SCC (squamous cell carcinoma) of skin Personal history of other malignant neoplasm of skin Seborrheic keratosis, inflamed Inflamed seborrheic keratosis documented in this encounter Care Teams Lead Level Designer Relationship Specialty Start Date End Date Robert Roberson MD [address] [place] [address] PCP - General General Internal Medicine 08/14/16 documented as of this encounter
--- OUTSIDE RECORDS SUMMARY | 2024-04-25 18:16 | XMS_ITS | Encounter Summary ---
[place] [address] Care Team Providers Care Aids Social Worker Name Role Phone Robert Roberson MD Primary Care Provider + [phone] Reason for Visit * Reason Comments Skin Check Encounter Details Date Type Department Care Team (Late st Contact Info) Description 02/25/2017 11:30 AM EDT Office Visit Dermatology at [address] [place] [address] Wisam Fortune MD [address] [facility] [place] [address] Seborrheic keratosis; History of SCC (squamous cell carcinoma) of skin; Actinic keratosis Social History Tobacco Use Types Packs/Day Years Used Date Smoking Tobacco: Never Smokeless Tobacco: Never Sex and Gender Information Value Date Recorded Sex Assigned at Not on file Gender Identity Not on file Sexual Orientation Not on file documented as of this encounter Progress Notes * Wisam Fortune MD - 02/25/2017 11:30 AM EDT PROBLEM: 1. Six-month actinic check. 2. History of SCCA left upper chest 2005. 3. History of rosacea initially diagnosed 2000, currently quiescent. Taya follows up and has been doing well. She is here for repeat check. She would like to be checked on a q 6-month basis. She denies any past history of melanoma. She continues to enjoy the sun and is looking with her significant other, T. K., for a sailboat. They are looking at an [employer]. Physical examination reveals a pleasant 76-year-old woman who has actinics present on the forehead and left gnosticism; 2 are noted. She has a waxy, stuck on-appearing seborrheic keratosis of the right gnosticism which I tried to treat last visit, but did not apparently resolve. Otherwise examination of the hair part line of the scalp, the face, the neck, the chest, the back, hands, arms, forearms, thighs and the calves is benign. A/P: Seborrheic keratoses, right gnosticism. a. Could consider LN2. 2. Actinic keratoses, facial. a. LN2 x2 applied to sites on forehead. 3. Moderate solar damage. a. Continue our q 6-month followups. Return to clinic 6 months. Cc: Robert Roberson MD documented in this encounter Plan of Treatment Upcoming Encounters Date Type Department Care Team (Late st Contact Info) Description 04/17/2025 10:00 AM EDT Office Visit Dermatology at [place] [address] [place] [address] Wisam Fortune MD [address] [facility] [place] [address] documented as of this encounter Visit Diagnoses Diagnosis Seborrheic keratosis Other seborrheic keratosis History of SCC (squamous cell carcinoma) of skin Personal history of other malignant neoplasm of skin Actinic keratosis documented in this encounter Care Teams Aids Social Worker Relationship Specialty Start Date End Date Robert Roberson MD [address] [place] [address] PCP - General General Internal Medicine 08/14/16 documented as of this encounter
--- OUTSIDE RECORDS SUMMARY | 2024-04-25 18:16 | XMS_ITS | Encounter Summary ---
[place] [address] Care Team Providers Care Washing And Screening Plant Supervisor Name Role Phone Robert Roberson MD Primary Care Provider + [phone] Reason for Visit * Reason Comments Skin Check Encounter Details Date Type Department Care Team (Late st Contact Info) Description 03/14/2020 8:15 AM EDT Office Visit Dermatology at [place] [address] [facility] [place] [address] Wiasm Fortune MD [address] [facility], [place] [address] Seborrheic keratosis; Actinic keratosis; History of SCC (squamous cell carcinoma) of skin Social History Tobacco Use Types Packs/Day Years Used Date Smoking Tobacco: Never Smokeless Tobacco: Never Sex and Gender Information Value Date Recorded Sex Assigned at Not on file Gender Identity Not on file Sexual Orientation Not on file documented as of this encounter Progress Notes * Wisam Fortune MD - 03/14/2020 8:15 AM EDT Problem: 1. ??One-year skin checkup 2. ??History of SCCA left upper chest 2005 3. ??History of rosacea initially diagnosed 2010 currently quiescent 4. 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 The right nasal bridge BCC treatment site has healed well but with a little bit of an atrophic scar. She has several actinic's present today. She had a good winter and enjoys very much [place] living on [facility] in [place]. Physical examination reveals a hyper keratotic painful actinic keratosis on the left upper foreheadseveral in the eyebrows the temples and on her cheeks. She has irritated seborrheic keratosis on the left lateral breast and on the submandibular chin and on the right sikh. Assessment and plan: Actinic keratoses forehead and facial sites 1. 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 No evidence recurrence Seborrheic keratose of the temples and left lateral breast and submandibular jawline 1. LN 2 x 2 applied each of 3 sites at the patients request. Cc: Robert Roberson MD documented in this encounter Plan of Treatment Upcoming Encounters Date Type Department Care Team (Late st Contact Info) Description 04/17/2025 10:00 AM EDT Office Visit Dermatology at [place] [address] [place] [address] Wisam Fortune MD [address] [facility], [place] [address] documented as of this encounter Visit Diagnoses Diagnosis Seborrheic keratosis Other seborrheic keratosis Actinic keratosis History of SCC (squamous cell carcinoma) of skin Personal history of other malignant neoplasm of skin documented in this encounter Care Teams Washing And Screening Plant Supervisor Relationship Specialty Start Date End Date Robert Roberson MD [address] [place] [address] PCP - General General Internal Medicine 08/14/16 documented as of this encounter
--- OUTSIDE RECORDS SUMMARY | 2024-04-25 18:16 | XMS_ITS | Encounter Summary ---
[place] [address] Care Team Providers Care Manufacturing Controller Name Role Phone Unknown Primary Care Provider Unavailabl e Reason for Visit * Reason Comments Skin Check Encounter Details Date Type Department Care Team (Late st Contact Info) Description 06/02/2016 10:00 AM EDT Office Visit Dermatology at [address] [address] Wisam Fortune MD [address] [facility] [place] [address] Seborrheic keratosis; History of SCC (squamous cell carcinoma) of skin; Actinic keratosis Social History Tobacco Use Types Packs/Day Years Used Date Smoking Tobacco: Never Smokeless Tobacco: Never Sex and Gender Information Value Date Recorded Sex Assigned at Not on file Gender Identity Not on file Sexual Orientation Not on file documented as of this encounter Progress Notes * Wisam Fortune MD - 06/02/2016 10:00 AM EDT PROBLEM: Skin check. Taya is a 75-year-old woman who presents today for continuation of dermatologic skin care. She has moved to the [facility] where she has a home in [place], [place], on [facility], and previously was followed by Dr. Nuñez, whose office is now in [place]. The patient states that she has no history of melanoma, but has a history of squamous cell skin cancer of the left upper chest in 2005. She also has a history of rosacea she has been treating since 2000, first with tetracycline, more recently with MetroGel. It seems to help, although she still gets breakouts. The patient grew up in [place], [place]. She has had actinics treated in the past. She does try to follow sun precautions, wearing a hat, SPF50 sunscreen in the early spring, SPF30 in the later summer, and avoiding the sun from 12 to 4. I see Taya's partner, who is a physician, Sabrina Cortes. PHYSICAL EXAMINATION: This is a pleasant 75-year-old woman who has diffuse skin damage across the forehead, temples, and the glabella, and cheeks. A total of 10 actinics are noted. Examination of the chest and back show a good healing of the left upper chest SCC excision site. There is no evidence of any malignant lesion recurrence there, and skin examination of the chest, back, hands, forearms, thighs, calves is otherwise benign. ASSESSMENT AND PLAN: 1. Actinic keratoses. A. LN x2 by 10 sites on face. 2. History of SCC on left upper chest. A. Patient reassured about benign examination. 3. Rosacea. A. Continue metronidazole. It seems to be working reasonably well in controlling the symptoms. She is using it on a p.r.n. basis. She still has a refill from Dr. Nuñez. 4. Seborrheic keratoses, irritated, submammary. A. Will schedule 15-minute appointment for removal of seborrheic keratoses in submammary breast area and upper abdomen. Then will start q. 6-month followups for Taya. CC: Robert Davis MD documented in this encounter Plan of Treatment Upcoming Encounters Date Type Department Care Team (Late st Contact Info) Description 04/17/2025 10:00 AM EDT Office Visit Dermatology at [place] [address] [facility] [place] [phone] Wisam Fortune MD [address] [facility] [place] [address] documented as of this encounter Visit Diagnoses Diagnosis Seborrheic keratosis Other seborrheic keratosis History of SCC (squamous cell carcinoma) of skin Personal history of other malignant neoplasm of skin Actinic keratosis documented in this encounter Care Teams Manufacturing Controller Relationship Specialty Start Date End Date Unknown None PCP - General 11/26/11 08/13/16 documented as of this encounter
--- OUTSIDE RECORDS SUMMARY | 2024-04-25 18:16 | XMS_ITS ---
Author Organization Unknown Address [address] [place] [phone] Phone Care Team Providers Care Valve Machine Operator Name Role Phone SHERRY SELLERS Attending Unavailab Bruner Primary Unavailable [facility] Date/Time: 06/04/2021 11:30 [facility] ID: [id number] [address] [place], [place], [address] LOINC: 75300-8 Test Value Unit Reference Range Code Code System Flag SOURCE= Anterior nasal Tier- PRE-OP SARS COV2 RNA: NEGATIVE REFERENCE RAN GE: NEGAT 32057-3 LOINC Social History Type Status Start Date End Date Code Code Syst em Smoking History Never smoker (Never Smoked) 419179364 SNOMED CT Sex Female Hospital Discharge Instructions [...] Co de Code System SULFA (sulfonamide) Active 46466139 [facility] MED-CT Plan of Treatment Pre-Op Covid-19 Testing 06/04/2021 Encounters Encounter Diagnosis Start Date Code Code Sys tem Encounter for preprocedural laboratory examination SNOMED-CT Personal Care Team Section Performer Name Performer Role Active Date Inactive Da te
--- OUTSIDE RECORDS SUMMARY | 2024-04-25 18:16 | XMS_ITS | Encounter Summary ---
Author Organization [facility] Address [address] [place] [address] Care Team Providers Care Restaurant Busser Name Role Phone Zoran Roberson MD Primary Care Provider [phone] Encounter Details Date Type Department Care Team (Late st Contact Info) Description 08/18/2007 Results Only [facility] [address] [place] [address] Larry Brush MD [address] [facility] [address] [place] [address] Social History Tobacco Use Types [...] Date/Time Associated Diagnosis Comments SURGICAL PATHOLOGY Routine 08/18/2007 0:00 EST documented in this encounter Results * SURGICAL PATHOLOGY (08/18/2007 0:00 EST) Pathology Report: SURGICAL PATHOLOGY REPORT Reports generated via electronic interface contain original data; however they are lacking the format of the original report. Caution should be taken when reading/interpreting unformatted reports. Name: ? TAYA SERRANO ? Accession #: ? [id number] ? : ? 1940 (Age: 67) ??F ? Collect Date: ? 08/18/2007 ? Location: ? [facility] ? Receive Date: ? 08/19/2007 ? Provider: LARRY BRUSH MD Copy to: ZORAN ROBERSON MD ? Final Pathologic Diagnosis: ? Skin of wrist, right dorsal, shave biopsy: - Actinic keratosis, hypertrophic type. Microscopic Description: ? The stratum corneum is markedly thickened by orthohyperkeratosis and confluent parakeratosis. ??The epidermis is hyperplastic with expansion of the stratum spinosum by enlarged keratinocytes with abundant glassy eosinophilic cytoplasm. The basal keratinocytes show a variable degree of nuclear atypia including enlargement, dispolarity, and overlap. ??The dermis is marked by solar elastosis, vascular ectasia, and a lymphohistiocytic infiltrate. ??(Dr. Jeff)/[facility] Document reviewed and electronically signed by: Codi Jeff MD Report ??Date: 08/22/2007 14:07 By the signature above, the attending physician certifies that he/she has personally conducted a gross and/or microscopic examination of the described specimens and rendered or confirmed the above diagnosis. Specimen(s) Received: ? R dorsal wrist Clinical History: ? Hypertrophic AK v SCCIS; clinical diagnosis code: 238.2 Gross Description: ? Received in formalin labelled Sheperd and R dorsal wrist is a 0.8 x 0.5 x 0.3 cm shave biopsy of a raised irregular lesion. ??The specimen is bisected and is entirely submitted in one cassette. ??(Tyler Reese)/[facility] End of Report [facility] 08/18/2007 08/19/2007 20: 16 EST Larry Brush MD PATHOLOGY ORDER ISAAC [facility] [address] [place] [address] documented in this encounter Visit Diagnoses Not on filedocumented in this encounter Care Teams Restaurant Busser Relationship Specialty Start Date End Date Zoran Roberson MD [address] [place] [address] PCP - General 02/27/10 documented as of this encounter
--- OUTSIDE RECORDS SUMMARY | 2024-04-25 18:16 | XMS_ITS | Encounter Summary ---
Author Organization [facility] Address [address] [place] [address] Care Team Providers Care Epilepsy Physician Name Role Phone Unavailable Primary Care Provider Unavailabl e Encounter Details Date Type Department Care Team (Late st Contact Info) Description 10/14/2001 23:12 EST Hospital Encounter [facility] - Other [address] [place], [place] [phone] Bimal Jack MD [address] [place] [address] [address] [place], [place] [id number] Unknown, MD Lion Discharge Disposition: Auto Discharge Social History Tobacco [...] Priority Date/Time Associated Diagnosis Comments TSH Routine 10/14/2001 16:00 EST documented in this encounter Results * (ABNORMAL) TSH (10/14/2001 16:00 EST) TSH 0.32(L) 0.35 - 5.50 uIU/ml [facility] 10/14/2001 16:0 0 EST 10/14/2001 21:07 EST Bimal Jack MD CHEMISTRY & BLOOD GA S ORDERABLES [facility] [address] [place] [address] documented in this encounter Visit Diagnoses Not on filedocumented in this encounter
--- OUTSIDE RECORDS SUMMARY | 2024-04-25 18:16 | XMS_ITS | Encounter Summary ---
[place] [address] Care Team Providers Care Coremaker Helper Name Role Phone Robert Roberson MD Primary Care Provider [phone] Encounter Details Date Type Department Care Team (Latest Contact Info) Description 03/25/2023 Travel Social History Tobacco Use Types Packs/Day [...] 10:00 AM EDT Office Visit Dermatology at [place] [address] [place] [phone] Wisam Fortune MD [address] [facility] [place] [address] documented as of this encounter Visit Diagnoses Not on filedocumented in this encounter Care Teams Coremaker Helper Relationship Specialty Start Date End Date Robert Roberson MD [address] [place] [address] PCP - General General Internal Medicine 08/14/16 documented as of this encounter
--- OUTSIDE RECORDS SUMMARY | 2024-04-25 18:16 | XMS_ITS | Encounter Summary ---
Author Organization [facility] Address [address] [place] [address] Care Team Providers Care Principal Statistical Programmer Name Role Phone Unavailable Primary Care Provider Unavailabl e Encounter Details Date Type Department Care Team (Late st Contact Info) Description 03/12/2000 19:32 EDT Hospital Encounter [facility] - Other [address] [place] [address] Mohsen Lynn MD [address] [place] [address] Unknown, Provider, Social History Tobacco Use Types [...] Priority Date/Time Associated Diagnosis Comments TSH Routine 03/12/2000 19:46 EDT documented in this encounter Results * TSH (03/12/2000 19:46 EDT) TSH 2.71 0.35 - 5.50 uIU/ml [facility] 03/12/2000 19:4 6 EDT 03/12/2000 19:46 EDT Mohsen Nieto MD CHEMISTRY & BLOOD GA S ORDERABLES [facility] [address] [place] [address] documented in this encounter Visit Diagnoses Not on filedocumented in this encounter
--- OUTSIDE RECORDS SUMMARY | 2024-04-25 18:16 | XMS_ITS | Referral Summary ---
Author Organization [facility] Address [address] [place] [address] Care Team Providers Care Purchaser Name Role Phone Robert Roberson MD Primary Care Provider [phone] Social History Tobacco Use Types Packs/Day Years Used Date Smoking Tobacco: Never Assessed Sex and Gender Information Value Date Recorded Sex Assigned at Not on file Gender Identity Not on file Sexual Orientation Not on file Plan of Treatment Not on file Advance Directives For more information, please contact: [phone] Documents on File Type Date Recorded Patient Anesthesiologist Assistant Expl anation Advance Directive 11/05/2009 3:17 Care Teams Purchaser Relationship Specialty Start Date End Date Robert Roberson MD [address] [place] [address] PCP - General 02/27/10
--- OUTSIDE RECORDS SUMMARY | 2024-04-25 18:16 | XMS_ITS | Encounter Summary ---
Author Organization [facility] Address [address] [place] [address] Care Team Providers Care Washer Engineer Helper Name Role Phone Robert Roberson MD Primary Care Provider [phone] Encounter Details Date Type Department Care Team (Latest Contact Info) Description 08/02/2015 13:07 EST - 08/02/2015 13:08 [facility] Hospital Encounter [address] [address] Larry Nuñez MD [address] [place] [phone] Discharge Disposition: Home or Self Care Social History Tobacco Use Types Packs/Day Years Used Date Smoking Tobacco: Never Assessed Sex and Gender Information Value Date Recorded Sex Assigned at Not on file Gender Identity Not on file Sexual Orientation Not on file documented as of this encounter Discharge Diagnoses Diagnosis D48.5 Neoplasm of uncertain behavior of skin-D48.5[ICD-10-CM] documented in this encounter Discharge Disposition Disposition Code Departure Means Destination Home or Self Care documented in this encounter Plan of Treatment Not on file documented as of this encounter Visit Diagnoses Not on filedocumented in this encounter Care Teams Washer Engineer Helper Relationship Specialty Start Date End Date Robert Roberson MD [address] [place] [address] [id number] PCP - General 02/27/10 documented as of this encounter
--- OUTSIDE RECORDS SUMMARY | 2024-04-25 18:16 | XMS_ITS | Encounter Summary ---
Author Organization Counts Include [facility] Address [facility] [place] [address] Care Team Providers Care Needle Straightener Name Role Phone Unknown Primary Care Provider Unavailabl e Encounter Details Date Type Department Care Team (Latest Contact Info) Description 03/03/2016 9:40 AM EDT - 03/03/2016 11:59 PM EDT Hospital Encounter XRay at [address] [place] [address] Lavell Schaeffer MD [facility] [place] [address] Low back pain, unspecified back pain laterality, unspecified chronicity, with sciatica presence unspecified Discharge Disposition: Home Social History Tobacco Use Types Packs/Day Years Used Date Smoking Tobacco: Never Smokeless Tobacco: Never Sex and Gender Information Value Date Recorded Sex Assigned at Not on file Gender Identity Not on file Sexual Orientation Not on file documented as of this encounter Medications at Time of Discharge Medication Sig Dispensed Refills Start Date End Date fish oil-omega-3 fatty acids 1,000 mg Capsule Take 2 g by mouth 2 times daily. levothyroxine (SYNTHROID) 125 mcg Tablet Take 125 mcg by mouth daily. 03/17/2021 hydroxychloroquine (PLAQUENIL) 200 mg Tablet Take 200 mg by mouth 2 times daily. Only takes 3 days a week 03/17/2021 CHOLECALCIFEROL, VITAMIN D3, (VITAMIN D3 ORAL) Take 2 capsules by mouth daily. 03/25/2023 aspirin 81 mg Tablet, Delayed Release (E.C.) Take 81 mg by mouth daily. Takes daily for 7 days, then takes 7 days off 03/17/2021 documented as of this encounter Plan of Treatment Upcoming Encounters Date Type Department Care Team (Late st Contact Info) Description 04/17/2025 10:00 AM EDT Office Visit Dermatology at [place] [address] [place] [address] Wisam Fortune MD [address], [place] [address] documented as of this encounter Procedures Procedure Name Priority Date/Time Associated Diagnosis Comments XR LUMBAR SPINE 2 OR 3 VIEWS Routine 03/03/2016 10:15 AM EDT Low back pain, unspecified back pain laterality, unspecified chronicity, with sciatica presence unspecified documented in this encounter Results * XR Lumbar Spine 2 Or 3 Views (GENERIC) (03/03/2016 10:15 AM EDT) Anatomical Region Laterality Modality L-spine N/A Digital Radiogra phy Impressions 03/03/2016 11:36 AM EDT 1. On the flexion view, there is 11 mm anterolisthesis of L4 on L5 and 7 mm of anterolisthesis of L5 on S1. On the extension view, ??there is 7 mm of anterolisthesis of L4 on L5.and 5 mm of anterolisthesis of L5 on S1. ?? 2. No recent or acute fracture. 3. Slight anterior wedging of the T10 vertebral body is nonacute. 4. Diffuse degenerative changes are noted in the visualized lower thoracic and lumbar spine. 5. Dextroconvex scoliosis of the ??lumbar spine with the apex at the L3 level. Narrative 03/03/2016 11:36 AM EDT EXAMINATION: XR LUMBAR SPINE 2 OR 3 VIEWS CLINICAL HISTORY: AP lat flex/ext 3 views to eval lumbar back pain TECHNIQUE: ? AP and lateral flexion and extension views. COMPARISON: MRI February 12, 2016 FINDINGS: On the flexion view, there is 11 mm anterolisthesis of L4 on L5 and 7 mm of anterolisthesis of L5 on S1. On the extension view, ??there is 7 mm of anterolisthesis of L4 on L5.and 5 mm of anterolisthesis of L5 on S1. ??No recent or acute fracture is identified. Slight anterior wedging of the T10 vertebral body is nonacute. Diffuse degenerative changes are noted in the visualized lower thoracic and lumbar spine. There is dextroconvex scoliosis of the ??lumbar spine with the apex at the L3 level. Osteoarthritis involves the sacroiliac joints. Procedure Note Thiago Johnson MD - 03/03/2016 EXAMINATION: XR LUMBAR SPINE 2 OR 3 VIEWS CLINICAL HISTORY: AP lat flex/ext 3 views to eval lumbar back pain TECHNIQUE: AP and lateral flexion and extension views. COMPARISON: MRI February 12, 2016 FINDINGS: On the flexion view, there is 11 mm anterolisthesis of L4 on L5 and 7 mmof anterolisthesis of L5 on S1. On the extension view, there is 7 mm of anterolisthesis of L4 on L5.and 5 mm of anterolisthesis of L5 on S1. Norecent or acute fracture is identified. Slight anterior wedging of the S21amwjkndbr body is nonacute. Diffuse degenerative changes are noted in the visualizedlower thoracic and lumbar spine. There is dextroconvex scoliosis of the lumbarspine with the apex at the L3 level. Osteoarthritis involves the sacroiliac joints. IMPRESSION 1. On the flexion view, there is 11 mm anterolisthesis of L4 on L5 and 7mm of anterolisthesis of L5 on S1. On the extension view, there is 7 mm of anterolisthesis of L4 on L5.and 5 mm of anterolisthesis of L5 on S1. 2. No recent or acute fracture. 3. Slight anterior wedging of the T10 vertebral body is nonacute. 4. Diffuse degenerative changes are noted in the visualized lower thoracicand lumbar spine. 5. Dextroconvex scoliosis of the lumbar spine with the apex at the D1eddrf. Lavell Schaeffer MD IMG DX ORDERABLES documented in this encounter Visit Diagnoses Diagnosis Low back pain, unspecified back pain laterality, unspecified chronicity, with sciatica presence unspecified documented in this encounter Care Teams Needle Straightener Relationship Specialty Start Date End Date Unknown None PCP - General 11/26/11 08/13/16 documented as of this encounter
--- OUTSIDE RECORDS SUMMARY | 2024-04-25 18:16 | XMS_ITS | Encounter Summary ---
Author Organization [facility] Address [address] [place] [address] Care Team Providers Care Stem Threshing Machine Operator Name Role Phone Unavailable Primary Care Provider Unavailabl e Encounter Details Date Type Department Care Team (Latest Contact Info) Description 12/08/2007 7:49 EDT - 12/09/2007 11:59 EDT Hospital Encounter [facility] General Surgery Unit [address] [place], [place] [address] Briana Richey MD [address] [place] [address] Discharge Disposition: Home-Health Care Svc Social History Tobacco Use Types Packs/Day Years Used Date Smoking Tobacco: Never Assessed Sex and Gender Information Value Date Recorded Sex Assigned at Not on file Gender Identity Not on file Sexual Orientation Not on file documented as of this encounter Discharge Disposition Disposition Code Departure Means Destination Home-Health Care Svc documented in this encounter OR Notes * OR Surgeon - Briana Richey MD - 12/08/2007 0000 EDT PROCEDURE REPORT PT TYPE: IP SERVICE DATE: 12/08/2007 SURGEON: Briana Richey MD AMERICAN HISTORY PROFESSOR: Lyn COE (Was present and assisted in all isaacs portions of the case, because noqualified resident was available) PREOPERATIVE DIAGNOSIS Pelvic organ prolapse. POSTOPERATIVE DIAGNOSIS Pelvic organ prolapse. PROCEDURE Anterior Prolift and tension-free vaginal tape obturator. ANESTHESIA Spinal. NARRATIVE The patient was taken to the operating room where spinal anesthetic was administered. The patient was placed in stirrups, prepped and draped in the usual fashion for vaginal surgery. The bladder was catheterized of clear urine. The anterior vaginal wall was grasped just distal to the apex and 1-2 cm proximal to the urinary meatus. The area was infiltrated first with dilute vasopressin followed bysaline for hydrodissection. A vertical incision was made. The bladder was completely mobilized off the anterior vaginal wall until the pelvic sidewalls and pelvic floor reached bilaterally. Four incisions were made. The first with the level of the clitoris in the genitofemoral fold. The second two were made 2 cm inferior and 1 cm lateral to the first. The anterior Prolift mesh was trimmed. The superior passers were passed. The sheaths were left in place followed by passage of the suture retrievers. The inferior passers were similarly passed exiting 1 cm lateral and superior to the ischial spine. The mesh arms were placed through all four suture retrievers and pulled through the sheaths. Themesh was tacked in place using 3-0 Vicryl. The anterior vaginal wall was closed with a running interlocking suture of 2-0 Vicryl. Gentle tractionwas placed on the mesh arms and before the sheaths were removed upward pressure was placed on vaginal wall in order to release tension on the mesh arms. The passer sheaths were removed and the mesh was trimmed at the level of the skin. At this point, attention was turned to the suburethral sling. The anterior vaginal wall beneath themidurethra was grasped with Allis clamps and a dilute solution of vasopressin was infiltrated. A vertical incision was made. The urethra was mobilized free off the mucosa. Tension-free vaginal tape obturator sling was placed with the passers exiting out the superior incisions of the Prolift mesh system. The tape was positioned loosely out of the midurethra. The passers were cut free from the tape. The plastic sheath surrounding the tape was removed. The tape was trimmed at the level of the skin. All skin incisions were closed with DERMABOND. The anterior vaginal wall beneath the midurethra was closed with a running interlocking suture of 3-0 Vicryl. The Cardoso catheter was replaced as was a Premarin soaked vaginal pack. All counts were correct at the completion of the procedure and the patient was taken to the PACU in good condition. Signed by Briana Richey MD 12/22/2007 14:42 Briana Richey MD - Briana Richey MD A - Job ID: [id number] Document ID: [id number] cc: MD Briana Busby MD documented in this encounter Plan of Treatment Not on file documented as of this encounter Visit Diagnoses Not on filedocumented in this encounter
--- OUTSIDE RECORDS SUMMARY | 2024-04-25 18:16 | XMS_ITS | Encounter Summary ---
Author Organization [facility] Address [address] [place] [address] Care Team Providers Care Extrusion Bender Name Role Phone Unavailable Primary Care Provider Unavailabl e Encounter Details Date Type Department Care Team (Late st Contact Info) Description 11/28/1999 21:16 EST Hospital Encounter [facility] - Other [address] [place] [address] Mohsen Lynn MD [address] [place], [place] [address] Unknown, Provider, Social History Tobacco Use Types [...] Priority Date/Time Associated Diagnosis Comments TSH Routine 11/28/1999 19:52 EST documented in this encounter Results * (ABNORMAL) TSH (11/28/1999 19:52 EST) TSH 14.95(H) 0.35 - 5.50 uIU/ml [facility] 11/28/1999 19:5 2 EST 11/28/1999 19:52 EST Mohsen Nieto MD CHEMISTRY & BLOOD GA S ORDERABLES [facility] [address] [place] [address] documented in this encounter Visit Diagnoses Not on filedocumented in this encounter
--- OUTSIDE RECORDS SUMMARY | 2024-04-25 18:16 | XMS_ITS | Encounter Summary ---
[place] [address] Care Team Providers Care Machine Long Goods Helper Name Role Phone Robert Roberson MD Primary Care Provider [phone] Reason for Visit * Reason Comments Follow-up Encounter Details Date Type Department Care Team (Late st Contact Info) Description 08/14/2016 2:15 PM EST Office Visit Dermatology at [address] [address] Wisam Fortune MD [address] [facility], [facility] [place] [address] Seborrheic keratosis; Seborrheic keratosis, inflamed Social History Tobacco Use Types Packs/Day Years Used Date Smoking Tobacco: Never Smokeless Tobacco: Never Sex and Gender Information Value Date Recorded Sex Assigned at Not on file Gender Identity Not on file Sexual Orientation Not on file documented as of this encounter Progress Notes * Wisam Fortune MD - 08/14/2016 2:15 PM EST PROBLEM: Irritated seborrheic keratoses. Taya follows up today for removal of irritated seborrheic keratoses present on the right lateral base of her neck and on the submammary breasts, and on the abdomen. Physical examination reveals about 14 inflamed seborrheic keratoses at these sites. A/P: 1. Seborrheic keratoses, inflamed. a. After obtaining informed patient consent, 14 sites were anesthetized and removed with light curettage and desiccation. b. Triple antibiotic ointment and Band-Aids placed. c. Wound care instructions and supplies given. d. Return to clinic in November for her regular q. 6-month skin check. cc: Robert Roberson MD documented in this encounter Plan of Treatment Upcoming Encounters Date Type Department Care Team (Late st Contact Info) Description 04/17/2025 10:00 AM EDT Office Visit Dermatology at [place] [address] [place] [address] Wisam Fortune MD [address] [facility], [place] [address] documented as of this encounter Visit Diagnoses Diagnosis Seborrheic keratosis Other seborrheic keratosis Seborrheic keratosis, inflamed Inflamed seborrheic keratosis documented in this encounter Care Teams Machine Long Goods Helper Relationship Specialty Start Date End Date Robert Roberson MD [address] [place] [address] PCP - General General Internal Medicine 08/14/16 documented as of this encounter
--- OUTSIDE RECORDS SUMMARY | 2024-04-25 18:16 | XMS_ITS | Encounter Summary ---
Author Organization [facility] Address [address] [place] [address] Care Team Providers Care Cd Mixer Name Role Phone Robert Roberson MD Primary Care Provider Encounter Details Date Type Department Care Team (Late st Contact Info) Description 10/06/2007 Results Only [facility] - [facility] [address] [place] [address] [place] [address] Social History Tobacco Use Types Packs/Day Years Used Date Smoking Tobacco: Never Assessed Sex and Gender Information Value Date Recorded Sex Assigned at Not on file Gender Identity Not on file Sexual Orientation Not on file documented as of this encounter Plan of Treatment Not on file documented as of this encounter Procedures Procedure Name Priority Date/Time Associated Diagnosis Comments CYTOPATHOLOGY Routine 10/06/2007 0:00 EST documented in this encounter Results * CYTOPATHOLOGY (10/06/2007 0:00 EST) Pathology Report: CYTOPATHOLOGY REPORT Reports generated via electronic interface contain original data; however they are lacking the format of the original report. Caution should be taken when reading/interpreti ng unformatted reports. Name: ? TAYA SERRANO ? Accession #: ? [id number] : ? 1940 (Age: 67) ??F ?Collect Date: ? 10/06/2007 Location: ? [facility] ? Receive Date: ? 10/10/2007 Provider: ?BRIANA RICHEY MD Copy to: ? Specimen/Source: ?ThinPrep Pap Test, Cervix, processed on [employer] ThinPrep Imaging System, with manual evaluation Last Menstrual Period: ? Menstrual/Pregnanc y Status: ? Menopausal Other: ? HPVA - HPV testing requested if ASC-US on the current ThinPrep Pap test. ? SPECIMEN ADEQUACY ? Satisfactory for Evaluation - assessment of transformation zone component not applicable ( e.g. atrophy, vaginal sample, hysterectomy) GENERAL CATEGORIZATION ? Negative for Intraepithelial Lesion or Malignancy ? Document reviewed and electronically signed by: ? CHALO Jones(ASCP) ? Report Date: ??10/14/2007 11:51 End of Report [facility] 10/06/2007 10/10/2007 Briana Richey MD PATHOLOGY ORDERABLES Performing Organization Address City/State/[facility] Co de Phone Number [facility] [address] [place] [address] documented in this encounter Visit Diagnoses Not on filedocumented in this encounter Care Teams Cd Mixer Relationship Specialty Start Date End Date Robert Roberson MD [address] [place] [address] PCP - General 02/27/10 documented as of this encounter
--- OUTSIDE RECORDS SUMMARY | 2024-04-25 18:16 | XMS_ITS | Clinical Summary ---
Author Organization [facility] Address [address] [place] [address] Care Team Providers Care Payloader Machine Operator Name Role Phone Robert Roberson MD Primary Care Provider [phone] Social History Tobacco Use Types Packs/Day Years Used Date Smoking Tobacco: Never Assessed Sex and Gender Information Value Date Recorded Sex Assigned at Not on file Gender Identity Not on file Sexual Orientation Not on file Plan of Treatment Health Maintenance Due Date Last Done Comments RSV Immunization ( o r 60+ Years) (1 - 1-dose 60+ series) 2001 Fall Risk Screening 2006 COVID-19 Vaccine ( season) 2023 Advance Directives For more information, please contact: [phone] Documents on File Type Date Recorded Patient Child Care Teacher Expl anation Advance Directive 11/05/2009 3:17 Care Teams Payloader Machine Operator Relationship Specialty Start Date End Date Robert Roberson MD [address] [place] [address] PCP - General 02/27/10
--- OUTSIDE RECORDS SUMMARY | 2024-04-25 18:16 | XMS_ITS | Encounter Summary ---
Author Organization [facility] Address [address] [place] [address] Care Team Providers Care General Production Laborer Name Role Phone Robert Roberson MD Primary Care Provider [phone] Encounter Details Date Type Department Care Team (Latest Contact Info) Description 09/29/2011 11:37 EST - 09/29/2011 11:38 EST Hospital Encounter [address] [address] Larry Nuñez MD [address] [place] [phone] Discharge Disposition: Home or Self Care Social [...] on filedocumented in this encounter Care Teams General Production Laborer Relationship Specialty Start Date End Date Robert Roberson MD [address] [place] [address] PCP - General 02/27/10 documented as of this encounter
--- OUTSIDE RECORDS SUMMARY | 2024-04-25 18:16 | XMS_ITS | Encounter Summary ---
Author Organization [facility] Address [address] [place] [address] Care Team Providers Care Elevator Pilot Name Role Phone Unavailable Primary Care Provider Unavailabl e Encounter Details Date Type Department Care Team (Latest Contact Info) Description 05/13/2006 8:42 EDT - 05/13/2006 11:59 EDT Hospital Encounter [facility] - Other [address] [place] [address] Shruti Bhatia, CONTACT OFFICER [address] [place], [place] [address] Discharge Disposition: Auto Discharge Social History Tobacco [...]
--- OUTSIDE RECORDS SUMMARY | 2024-04-25 18:16 | XMS_ITS | Encounter Summary ---
Author Organization [facility] [place] [address] Care Team Providers Care Strip Picker Name Role Phone Unknown Primary Care Provider Unavailabl e Encounter Details Date Type Department Care Team (Latest Contact Info) Description 02/12/2016 10:25 AM EDT - 02/12/2016 11:59 PM EDT Hospital Encounter [place] [address] Lavell Schaeffer MD [facility] [place] [address] Pain Discharge Disposition: Home Social History Tobacco Use [...] 10:00 AM EDT Office Visit Dermatology at [place] [address] [facility] [place] [address] Wisam Fortune MD [address], [place] [address] documented as of this encounter Procedures Procedure Name Priority Date/Time Associated Diagnosis Comments FILM LIBRARY STORAGE ONLY MR SPINE Routine 02/12/2016 10:25 AM EDT Pain documented in this encounter Results * Film Library- Storage only MR Spine (02/12/2016 10:25 AM EDT) Narrative RAD - 02/25/2016 11:33 AM EDT This exam is for storage only and is auto-finalizing. Lavell Schaeffer MD IMG FILM LIBRARY ORD ERABLES [place], [place] documented in this encounter Visit Diagnoses Diagnosis Pain Generalized pain documented in this encounter Care Teams Strip Picker Relationship Specialty Start Date End Date Unknown None PCP - General 11/26/11 08/13/16 documented as of this encounter
--- OUTSIDE RECORDS SUMMARY | 2024-04-25 18:16 | XMS_ITS | Encounter Summary ---
Author Organization [facility] Address [address] [place] [address] Care Team Providers Care Associate Data Scientist Name Role Phone Unavailable Primary Care Provider Unavailabl e Encounter Details Date Type Department Care Team (Latest Contact Info) Description 02/24/2010 20:39 EDT - 02/24/2010 20:40 EDT Hospital Encounter [facility] - Other [address] [place] [address] Larry Nuñez MD [address] [place] [phone] Discharge Disposition: Home or Self Care [...]
--- OUTSIDE RECORDS SUMMARY | 2024-04-25 18:16 | XMS_ITS | Encounter Summary ---
Author Organization [facility] Address [address] [place] [address] Care Team Providers Care Office Correspondent Name Role Phone Unavailable Primary Care Provider Unavailabl e Encounter Details Date Type Department Care Team (Latest Contact Info) Description 10/06/2007 12:39 EST Hospital Encounter [facility] - Other [address] [place] [address] Briana Richey MD [address] [place] [address] Discharge Disposition: Home or Self Care Social [...]
--- OUTSIDE RECORDS SUMMARY | 2024-04-25 18:16 | XMS_ITS | Encounter Summary ---
[place] [address] Care Team Providers Care Testing And Regulating Technician Name Role Phone Robert Roberson MD Primary Care Provider [phone] Reason for Visit * Reason Comments Annual Exam Encounter Details Date Type Department Care Team (Late st Contact Info) Description 03/27/2022 4:45 PM EDT Office Visit Dermatology at [place] [address] [facility] [place] [address] Wisam Fortune MD [address] [facility] [place] [address] Seborrheic keratosis; History of SCC (squamous cell [...] Progress Notes * Wisam Fortune MD - 03/27/2022 4:45 PM EDT Problem: 1. ??One-year skin checkup 2. ??History of SCCA left upper chest 2005 3. ??History of rosacea initially diagnosed 2010 currently quiescent 4. 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 Taya follows up and is now 81. She is here for her yearly skin checkup. She has been doing well.She enjoys her time in [place] where she spends part of the summer and then denis in the [facility]. Physical examination reveals a pleasant 81-year-old woman who has has actinic's across the foreheadand also dorsal hands total of 7 sites are noted. Fortunately careful examination of the head and the neck the chest the back the hands arms forearms thighs and calves is benign. Assessment plan: Actinic keratosis facial and dorsal hands 1. LN 2 x 2 applied to each of 7 sites 2. Continue sun avoidance precautions 3. [...] 10:00 AM EDT Office Visit Dermatology at [place] [address] [place] [address] Wisam Fortune MD [address] [facility] [place] [address] documented as of this encounter Visit Diagnoses Diagnosis Seborrheic keratosis Other seborrheic keratosis History of SCC (squamous cell carcinoma) of skin Personal history of other malignant neoplasm of skin Actinic keratosis Seborrheic keratosis, inflamed Inflamed seborrheic keratosis documented in this encounter Care Teams Testing And Regulating Technician Relationship Specialty Start Date End Date Robert Roberson MD [address] [place] [id number] PCP - General General Internal Medicine 08/14/16 documented as of this encounter
--- OUTSIDE RECORDS SUMMARY | 2024-04-25 18:16 | XMS_ITS | Clinical Summary ---
Author Organization [facility] Address [facility] [place] [address] Care Team Providers Care Tool Repairer Name Role Phone Robert Roberson MD Primary Care Provider [phone] Allergies Active Allergy Reactions Criticality Noted Date Comments Amoxicillin-Pot Clavulanate High 04/11/2024 Other Reaction(s): pain joint Azithromycin Nausea And Vomiting 03/27/2022 Ibandronate Nausea And Vomiting 03/03/2016 Headache, no energy, just does not feel well Covid-19 (Sars-Cov-2) Vaccine, Ad26 Other (See Comments) 04/11/2024 ? Renal failure Alendronate Other (See Comments) Medium 03/27/2022 Pt unsure of her reaction Sulfa (Sulfonamide Antibiotics) 03/03/2016 Patient cannot remember the reaction Tetracycline 03/27/2022 Other reaction(s): Intolerance Medications Medication Sig Dispensed Refills Start Date End Date Status fish oil-omega-3 fatty acids 1,000 mg Capsule Take 2 g by mouth 2 times daily. Active levothyroxine (Synthroid) 75 mcg Tablet 01/14/2022 Active Active Problems Problem Noted Date Diagnosed Date Seborrheic keratosis 06/02/2016 History of SCC (squamous cell carcinoma) of skin 06/02/2016 Actinic keratosis 06/02/2016 Spinal stenosis 03/03/2016 Overview (03/03/2016): L4-5, L5-S1 foraminal stenosis. Remote right L4-5 decompression 2010 APD Encounters Date Type Department Care Team Description 04/11/2024 11:30 AM EDT Office Visit Dermatology at [address] [phone] Wisam Fortune MD History of SCC (squamous cell carcinoma) of skin; History of basal cell carcinoma; Seborrheic keratoses 04/11/2024 Travel from Last 3 Months Social History Tobacco Use Types Packs/Day Years Used Date Smoking Tobacco: Never Smokeless Tobacco: Never Sex and Gender Information Value Date Recorded Sex Assigned at Not on file Gender Identity Not on file Sexual Orientation Not on file Last Filed Vital Signs Vital Sign Reading Time Taken Comments Blood Pressure 132/78 03/03/2016 10:32 AM EDT Pulse - - Temperature - - Respiratory Rate - - Oxygen Saturation - - Inhaled Oxygen Concentration - - Weight 61.2 kg (135 lb) 03/03/2016 10:32 AM EDT Height 165.1 cm (5' 5) 03/03/2016 10:32 AM EDT Body Mass Index 22.47 03/03/2016 10:32 AM EDT Plan of Treatment Upcoming Encounters Date Type Department Care Team (Late st Contact Info) Description 04/17/2025 10:00 AM EDT Office Visit Dermatology at [address] [phone] Wisam Fortune MD [address] [place] [address], [facility] [place] [address] Health Maintenance Due Date Last Done Comments Tdap adult 1960 Tetanus vaccine 1960 Zoster vaccine (1 of 2) 1991 Advance Directive 1996 Bone Density Scan 2006 Pneumoccocal Vaccine: 65+ (1 of 1 - PCV) 2006 Covid-19 Vaccine (1 - 2022-24 season) 2023 Influenza (Flu) vaccine (1 o f 1 - Influenza standard series) 05/21/2024 Care Teams Tool Repairer Relationship Specialty Start Date End Date Robert Roberson MD [address] [place] [address] PCP - General General Internal Medicine 08/14/16
--- OUTSIDE RECORDS SUMMARY | 2024-04-25 18:16 | XMS_ITS | Encounter Summary ---
Author Organization [facility] Address [address] [place] [address] Care Team Providers Care Business Intelligence Director Name Role Phone Unavailable Primary Care Provider Unavailabl e Encounter Details Date Type Department Care Team (Late st Contact Info) Description 02/24/2010 Results Only [facility] - [facility] ([facility] [address], [place] [id number] Larry Brush MD [address] [facility] [address] [place] [address] Social History Tobacco Use Types [...] Date/Time Associated Diagnosis Comments SURGICAL PATHOLOGY Routine 02/24/2010 0:00 EDT documented in this encounter Results * SURGICAL PATHOLOGY (02/24/2010 0:00 EDT) Pathology Report: SURGICAL PATHOLOGY REPORT ? Reports generated via electronic interface contain original data; ? however they are lacking the format of the original report. ? Caution should be taken when reading/interpreting unformatted reports. ? Name: ? TAYA SERRANO ? Accession #: ? [id number] ? : ? 1940 (Age: 69) ??F ? Collect Date: ? 02/24/2010 ? Location: ? [facility] ? Receive Date: ? 02/25/2010 ? Provider: LARRY BRUSH MD ? Copy to: ZORAN BLANC MD ? Final Pathologic Diagnosis: ? Skin of back, right upper, punch biopsy: ? - Lichenoid actinic keratosis. ??See microscopic and comment. ? Comment: ? The features overall are those of a lichenoid actinic keratosis with ? associated abundant parakeratosis. The lichenoid actinic keratosis encompassed ?? by the punch biopsy specimen, measures approximately 1.0 mm to the nearest ? peripheral edge. ??(Dr. Stephens/kmm ? Microscopic Description: ? The stratum corneum is thickened by orthohyperkeratosis with foci of ? parakeratosis, including horn formation. ??The epidermis is focally thickened ? with elongate and bulbous rete ridges. ??The basal keratinocytes show a variable degree of atypia including nuclear enlargement, dispolarity, and hyperchromasia. The dermis is marked by solar elastosis, vascular ectasia and a ? lymphohistiocytic infiltrate which obscures the dermal-epidermal junction. ??(Dr. Stephens/kmm ? Document reviewed and electronically signed by: ? Alysha Rubin MD ? Report ??Date: 02/27/2010 14:33 ? By the signature above, the attending physician certifies that he/she has ? personally conducted a gross and/or microscopic examination of the described ? specimens and rendered or confirmed the above diagnosis. ? Specimen(s) Received: ? R upper back ??cutaneous horn ? Clinical History: ? Clinical diagnosis code: 238.2 ? Gross Description: ? Received in formalin labelled Taya Serrano and R upper back is a ?? punch biopsy of choi skin measuring 0.6 cm in diameter and 0.7 cm in thickness. ?? There is a central choi crusted papule measuring 0.1 cm in diameter and 0.2 cm in thickness. ?? The specimen is bisected and submitted entirely in one cassette. ?? (Tyler Nur/[facility] ? End of Report ? JAVID ELLISON 02/24/2010 02/25/2010 16: 46 EDT Larry Brush MD PATHOLOGY ORDER ISAAC JAVID ELLISON [address] [place] [address] documented in this encounter Visit Diagnoses Not on filedocumented in this encounter
--- OUTSIDE RECORDS SUMMARY | 2024-04-25 18:16 | XMS_ITS | Encounter Summary ---
Author Organization [facility] Address [address] [place] [address] Care Team Providers Care Top Lifter Name Role Phone Unavailable Primary Care Provider Unavailabl e Encounter Details Date Type Department Care Team (Latest Contact Info) Description 10/06/1999 17:38 EST Hospital Encounter [facility] - Other [address] [place] [address] Mohsen Lynn MD [address] [place] [address] Unknown, Provider, Discharge Disposition: Auto Discharge Social History Tobacco [...]
--- OUTSIDE RECORDS SUMMARY | 2024-04-25 18:16 | XMS_ITS | Encounter Summary ---
Author Organization [facility] Address [address] [place] [address] Care Team Providers Care Arts Education Teacher Name Role Phone Robert Roberson MD Primary Care Provider [phone] Encounter Details Date Type Department Care Team (Late st Contact Info) Description 11/23/2005 Results Only [facility] - [facility] [address] [place] [address] Lavell Mayfield MD Social History Tobacco Use Types Packs/Day Years Used Date Smoking Tobacco: Never Assessed Sex and Gender Information Value Date Recorded Sex Assigned at Not on file Gender Identity Not on file Sexual Orientation Not on file documented as of this encounter Plan of Treatment Not on file documented as of this encounter Procedures Procedure Name Priority Date/Time Associated Diagnosis Comments CYTOPATHOLOGY Routine 11/23/2005 0:00 EST documented in this encounter Results * CYTOPATHOLOGY (11/23/2005 0:00 EST) Pathology Report: CYTOPATHOLOGY REPORT Reports generated via electronic interface contain original data; however they are lacking the format of the original report. Caution should be taken when reading/interpreti ng unformatted reports. Name: ? TAYA SERRANO ? Accession #: ? [id number] : ? 1940 (Age: 65) ??F ?Collect Date: ? 11/23/2005 Location: ? [facility] ? Receive Date: ? 11/25/2005 Provider: ?LAVELL MAYFIELD MD Copy to: ? Specimen/Source: ?ThinPrep Pap Test, Cervix/Endocervix, processed on [employer] ThinPrep Imaging System, with manual evaluation Last Menstrual Period: ? Other: ? HPVA - HPV testing requested if ASC-US on the current ThinPrep Pap test. ? SPECIMEN ADEQUACY ? Satisfactory for Evaluation - transformation zone component present GENERAL CATEGORIZATION ? Negative for Intraepithelial Lesion or Malignancy ? Document reviewed and electronically signed by: ? CHALO Jones(ASCP) ? Report Date: ??11/27/2005 08:38 End of Report JAVID ELLISON 11/23/2005 11/25/2005 Lavell Mayfield MD PATHOLOGY ORDERABLES Performing Organization Address City/State/[facility] Co de Phone Number JAVID ELLISON [address] [place] [address] documented in this encounter Visit Diagnoses Not on filedocumented in this encounter Care Teams Arts Education Teacher Relationship Specialty Start Date End Date Robert Roberson MD [address] [place] [address] PCP - General 02/27/10 documented as of this encounter
--- OUTSIDE RECORDS SUMMARY | 2024-04-25 18:17 | XMS_ITS | Encounter Summary ---
Author Organization [facility] Address [address] [facility] [place] [address] Care Team Providers Care Head Turbine Operator Name Role Phone Robert Roberson MD Primary Care Provider [phone] Encounter Details Date Type Department Care Team (Late st Contact Info) Description 07/16/2011 Interpretation Only Radiology [address] [facility] [place] [id number] Unknown None Social History Tobacco Use Types Packs/Day Years [...] 10:00 AM EDT Office Visit Dermatology at [address] [place] [phone] Wisam Fortune MD [address] [facility] [place] [address] documented as of this encounter Procedures Procedure Name Priority Date/Time Associated Diagnosis Comments XR FLUORO NO RAD <1HR - RADIOLOGY USE Routine 07/16/2011 6:45 AM EDT documented in this encounter Results * XR Fluoro <1Hr - Radiology Use (07/16/2011 6:45 AM EDT) Anatomical Region Laterality Modality N/A Radiographic Jenn ging 07/16/2011 6:45 AM EDT Narrative 07/16/2011 6:45 AM EDT APD Historical Result Principal Pole Framer: ??SANDRO ?PUMA INTRAOPERATIVE FLUOROSCOPY: A total of 5.4 seconds of intraoperative fluoroscopy was used by Dr Benavides. ??There was no Radiologist present during the exam. ??One spot image documents the procedure. ??(49.23 radcm2) Sandro Del Rosario MD [facility] [id number] CC: Procedure Note Unknown - 03/21/2019 APD Historical Result Principal Pole Framer: SANDRO DEL ROSARIO INTRAOPERATIVE FLUOROSCOPY: A total of 5.4 seconds of intraoperative fluoroscopy was used by Abhi. There was no Radiologist present during the exam. One spot image documents theprocedure. (49.23 radcm2) Sandro Del Rosario MD [facility] [id number] CC: Unknown IMG FLUORO ORDERABLE S documented in this encounter Visit Diagnoses Not on filedocumented in this encounter Care Teams Head Turbine Operator Relationship Specialty Start Date End Date Robert Roberson MD [address] [place] [address] PCP - General General Internal Medicine 08/14/16 documented as of this encounter
[2024-04-25 21:27] LABS: TSH (W/Ref FT4) 3.03 uIU/mL (0.36-3.74)
== END 2024-04-25 18:13 | disposition home or self-care (01) ==
LOC: NCHCN 18:12
PROVIDERS: PCP Internal Medicine; Visit Provider Nurse Practitioner Family
DX: E03.9 Hypothyroidism, unspecified (principal)
CPT/HCPCS: 84443

== ENCOUNTER 2025-03-27 16:12 | Outpatient (REF) | payer MEDICARE, BC, SELFPAY ==
[2025-03-27 19:52] LABS: Abs Immature Grans 0.01 10^3/uL (0.0-0.06); HCT 37.4 % (36.0-46.0); HGB 12.2 g/dL (11.2-15.7); Immature Grans % 0.3 %; MCH 31.1 pg (27.0-33.0); MCHC 32.6 % (32.0-36.0); MCV 95 fL (80-95); MPV 11.7 fL (8.0-11.0); Platelet Count 169 10^3/uL (130-400); RBC 3.92 10^6/uL (3.93-5.22); RDW 12.6 % (11.7-14.6); RDW-SD 43.9 fL; WBC 3.97 10^3/uL (4.4-10.8)
[2025-03-27 20:29] LABS: ALT 19 U/L (14-59); AST 21 U/L (15-37); Albumin 3.9 g/dL (3.4-5.0); Alkaline Phosphatase 66 U/L (46-116); Anion Gap 4.5 mmol/L (3-11); BUN 16 mg/dL (7-18); Bilirubin, Total 0.7 mg/dL (0.2-1.0); CO2 29.5 mmol/L (21.0-32.0); Calcium 9.5 mg/dL (8.5-10.1); Chloride 107 mmol/L (98-107); Estimated GFR 63.43 (mL/min/1.73m2); Glucose 102 mg/dL (74-106); Potassium 4.4 mmol/L (3.5-5.1); Sodium 141 mmol/L (136-145); TSH (W/Ref FT4) 1.59 uIU/mL (0.36-3.74); Total Protein 7.1 g/dL (6.4-8.2)
== END 2025-03-27 16:13 | disposition home or self-care (01) ==
LOC: NCHCN 16:12
PROVIDERS: PCP Internal Medicine; Visit Provider Nurse Practitioner Family
DX: R53.81 Other malaise (principal); R53.83 Other fatigue; E03.9 Hypothyroidism, unspecified
CPT/HCPCS: 80053; 84443; 85025